=== PATIENT | female | born 1975 | race Caucasian/White ===

== ENCOUNTER 2021-07-25 10:02 | Emergency (ER) | payer BC, SELFPAY ==
--- NOTE | ~2021-07-25 | CT_ITS ---
EXAMINATION: CT ABDOMEN AND PELVIS WITH CONTRAST CLINICAL INFORMATION: Upper abdominal pain radiating to back with vomiting. COMPARISON: June 04, 2017 TECHNIQUE: Multidetector volumetric images were obtained from the superior aspect of the liver through the pubic symphysis following administration 85 mL of Omnipaque 350 intravenous contrast. Sagittal and coronal reformatted images were obtained on the technologist's workstation. Oral contrast: No This CT examination was performed using dose optimization techniques as appropriate, variously including the following: *Automated exposure control *Adjustment of mA and/or kV according to patient size (this includes techniques or standardized protocols for targeted exams where dose is matched to indication/reason for exam; i.e. extremities or head) *Use of iterative reconstruction technique DLP: 854 mGy-cm FINDINGS: LUNG BASES: The visualized lung bases are unremarkable. No pleural or pericardial effusion. LIVER, GALLBLADDER, AND BILIARY TREE: There is fatty infiltration of the liver present with hepatomegaly at approximately 20 cm in vertical span. No new focal hepatic lesion or biliary ductal dilatation is present. There are 2 visualized homogeneously increased density approximately 1 cm lesions present which are stable representing hemangiomas. The gallbladder is unremarkable with no evidence of radiopaque gallstones, gallbladder wall thickening, or obvious pericholecystic inflammatory changes. PANCREAS: No peripancreatic inflammatory changes seen. Within the pancreatic head there are multiple low-density lesions the largest of which measures approximately 2.1 x 1.6 cm in size with Hounsfield unit measurements which may represent soft tissue or complex fluid. No pancreatic ductal dilatation is seen within the body and tail of the pancreas. SPLEEN: Unremarkable. ADRENAL GLANDS: Unremarkable. KIDNEYS AND URETERS: No dilated loops of large or small bowel are evident. BLADDER: Decompressed GASTROINTESTINAL TRACT: No dilated loops of large or small bowel are evident. No free air is evident. No significant amount of free fluid identified. There is a small hiatal hernia. No evidence of acute diverticulitis. No evidence of acute appendicitis. No pericolonic inflammatory fat streaking is seen. ABDOMINAL WALL: No significant hernia is appreciated. LYMPH NODES: No lymphadenopathy appreciated. There are prominent but not pathologically enlarged mesenteric lymph nodes seen. VASCULAR: Unremarkable. PELVIC VISCERA: IUD in place. Bilateral adnexal cysts present. OSSEOUS STRUCTURES: No suspicious destructive bony lesions identified. There is degenerative disc see seen at the L5-S1 level. CT/CT abdomen pelvis w con IMPRESSION: Cystic lesions within the pancreatic head not definitely seen on previous examination of June 04, 2017. These may represent sequela of previous pancreatitis however developing cystic mass cannot be totally excluded. MRCP/MRI would be of help in further evaluation as well as evaluation of the common bile duct through this area. No evidence of acute pancreatitis. Fatty infiltration of the liver with hepatomegaly. Hepatic meningiomas. Bilateral adnexal cysts. No evidence of obstructive uropathy. Fleischner guidelines were followed.
[2021-07-25 10:15] VITALS: BP 130/103; PULSE 115; RESP 18; TEMP 36.7; O2SAT 95; BMI 39.1
--- NOTE | 2021-07-25 10:18 | ED.NAVMDI ---
HPI - Nausea/Vomiting/Diarrhea General Chief complaint: Abdominal Pain Stated complaint: Vomiting Time Seen by Provider: 07/25/21 10:16 Source: patient Mode of arrival: ambulatory Limitations: no limitations History of Present Illness HPI Narrative: 45 y/o female with history of HTN, depression, alcoholic pancreatitis x3 who presents to the ER with diffuse upper abdominal pain that radiates to her back that started 3 days ago. She reports recently relapsing and began drinking heavy amounts of alcohol for the last 2-3 weeks, about 1 bottle of tequila per day. Last drink was about 4 days ago. She has been shaky with nausea and vomiting for the last 2 days. She got into an alcohol detox treatment program in [place] but her father canceled the trip because he thought it was a scam. She states this pain is similar to her previous episodes of pancreatitis. She last had pancreatitis in April and was admitted to [facility] for 8 days and was treated for withdrawal. She denies history of withdrawal seizures. MD elicited complaint: nausea, vomiting and abdominal pain Pertinent past history: alcohol abuse and pacreatitis Onset (ago): day(s) (3) Description of vomiting: food contents and blood-streaked Associated nausea: Yes Associated abdominal pain: Yes Location of pain: epigastric Radiation: other (back) Pain consistency: constant Severity: moderate Pain scale (0-10): 7 Quality: stabbing Exacerbating factors: eating Context: alcohol abuse Associated symptoms: loss of appetite, malaise, nausea/vomiting, weakness and anxiety Related Data Home Medications Medication Instructions Recorded Confirmed alprazolam 0.5 mg tablet 1 tab PO BID PRN 07/25/21 07/25/21 hydroxyzine pamoate 50 mg capsule 1 cap PO BID PRN 07/25/21 07/25/21 lisinopril 20 mg tablet 1 tab PO DAILY 07/25/21 07/25/21 omeprazole 20 mg capsule,delayed 20 mg PO DAILY 07/25/21 07/25/21 release venlafaxine 150 mg 1 cap PO DAILY 07/25/21 07/25/21 capsule,extended release 24 hr Previous Rx's Medication Instructions Recorded ondansetron 4 mg disintegrating 4 mg PO Q8H PRN #10 tab 07/25/21 tablet tramadol 50 mg tablet 50 mg PO Q8H PRN #8 tab 03/31/22 Allergies Allergy/AdvReac Type Severity Reaction Status Date / Time gluten [GLUTEN] Allergy Unknown ABD PAIN, Unverified 01/12/20 19:26 DIARRHEA Gluten Allergy Unknown Uncoded 08/26/17 00:00 pt states no medication Allergy Unknown Uncoded 08/26/17 00:00 allerg Review of Systems Review of Systems: Constitutional: No Fever, No Chills ENT/Mouth: No sore throat, No Rhinorrhea, No Swallowing Difficulty Eyes: No Eye Pain, No Swelling, No Redness Cardiovascular: No Chest Pain, No SOB, No Orthopnea, No Edema Respiratory: No Cough, No Sputum, No Wheezing, No dyspnea Gastrointestinal: + Nausea, + Vomiting, No Diarrhea, + abdominal Pain, No Hematochezia, No Melena Genitourinary: No Dysuria, No Urinary Frequency, No Hematuria Musculoskeletal: No joint pain, No Myalgias Skin: No Skin Lesions, No rash Neuro: + Weakness, No Numbness, No Dizziness, No Headache Psych: + Anxiety/Panic, + Depression Heme/Lymph: No Bruising, No Lymphadenopathy Endocrine: No Polyuria, No Polydipsia Gastrointestinal: Gastrointestinal: Reports nausea PMFSH Past Medical History Medical History (Updated 07/25/21 @ 15:31 by MAINE Moreno) Alcohol abuse Anxiety Depressed GERD (gastroesophageal reflux disease) Gluten intolerance Hypertension Social History Social History Advance Directives: No Physical Exam Vital Signs: Vital Signs: Last Vital Signs Temp 98.0 F 07/25/21 10:15 Pulse 91 07/25/21 15:31 Resp 16 07/25/21 15:31 BP 129/79 07/25/21 15:31 Pulse Ox 99 07/25/21 15:31 BMI result Body Mass Index 39.1 Appearance: Alert. Oriented X3. No acute distress. Eyes: Pupils equal, round and reactive to light. ENT: Pharynx normal. Neck: Normal inspection. Neck supple. CVS: Tachycardic, heart rate 110. Regular rhythm.. Pulses normal. Respiratory: No respiratory distress. Breath sounds normal. Abdomen: Soft. epigastric and right upper quadrant tenderness noted. No rebound or guarding. +BS x4 Skin: Skin warm and dry. Normal skin color. Normal skin turgor. No rashes. Extremities: No lower extremity edema. Very fine bilateral hand tremor noted. Neuro: Oriented X 3. No motor deficit. No sensory deficit. Tearful Course Course Course Narrative: 45-year-old female with history of alcohol abuse and alcoholic pancreatitis presents to the ER with epigastric abdominal pain, nausea, vomiting for the last 3 days. Her last alcoholic drink was about 4 days ago. She states this feels similar to her prior pancreatitis episodes. She is tachycardic on arrival. She has very slight tremor which may be due to alcohol withdrawal. Will treat with IV fluids, 1 mg of Ativan and 4 mg of IV morphine for reports of 8/10 abdominal pain. Lab workup ordered as well as CT scan of the abdomen for further evaluation of her pain. Reevaluation(s) Reevaluation #1: Lipase normal. T bili 1.6 with AST/ALT 63/41 and normal alk phos. Pain, nausea and HR improved. CT scan is pending. Reevaluation #2: CT scan showing no evidence of acute pancreatitis however there are new cystic lesion in the pancreatic head from 2018. Most likely sequela of prior pancreatitis. Spoke with Dr. Mccauley from GI - recommending clear liquids, pain control and outpatient non-emergent MRI/MRCP. Results and plan discussed with patient. Her pain is well controlled here and she is tolerating clear liquids. She would like to be discharged home With plan to go to a alcohol rehab in [place]. assistant boys track coach reached out to the facility in which she would like to go. She has been accepted and has a bed. She is stable for d/c with plan to go to [place] for treatment, short course of pain meds and GI follow up once back home. Consultations Consultation #1: GI - Garrick MDM - Nausea/Vomiting/Diarrhea Lab Data Result diagrams: 07/25/21 10:46 07/25/21 10:46 Labs: Lab Results 07/25/21 07/25/21 07/25/21 Range/Units 10:46 10:46 10:46 WBC 12.2 H (4.8-10.8) X10*3/uL RBC 4.71 (4.20-5.50) X10*6/uL Hgb 15.2 (12.0-16.0) g/dl Hct 43.4 (37.0-47.0) % MCV 92.1 (80.0-98.0) fL MCH 32.3 (27.0-33.0) pg MCHC 35.0 (31.0-35.0) g/dl RDW 13.4 (11.0-16.0) % Plt Count 286 (160-400) X10*3/uL MPV 8.8 L (9.4-12.3) fL Immature Gran % (Auto) 0.3 (0.0-0.4) % Neut % (Auto) 67.2 (45-73) % Lymph % (Auto) 24.1 (20-40) % Ransom % (Auto) 7.8 (2-11) % Eos % (Auto) 0.4 (0-4) % Baso % (Auto) 0.2 (0-2) % Lymph # (Auto) 3.0 (1.2-4.9) X10*3/uL Ransom # (Auto) 1.0 (0.1-1.2) X10*3/uL Eos # (Auto) 0.1 (0.0-0.4) X10*3/uL Baso # (Auto) 0.0 (0.0-0.2) X10*3/uL Abs Immat Gran (auto) 0.04 H (0.00-0.03) X10*3/uL Absolute Neuts (auto) 8.2 (2.0-8.3) x10*3/uL Absolute Nucleated RBC 0.000 (0.0-0.012) X10*3/uL Nucleated RBC % (auto) 0.0 (0.0-0.2) /100WBC Sodium 137 (135-145) mmol/L Potassium 3.8 (3.3-5.1) mmol/L Chloride 92 L (96-108) mmol/L Carbon Dioxide 28 (22-29) mmol/L Anion Gap 21 H (12-20) BUN 13 (9-16) mg/dL Creatinine 1.10 (0.5-1.4) mg/dL Estim Creat Clear Calc 83.0 Estimated GFR 53 Random Glucose 104 (60-115) mg/dL Calcium 10.6 H (8.4-10.2) mg/dL Magnesium 1.8 (1.6-2.6) mg/dL Total Bilirubin 1.6 H (0.0-1.0) mg/dL Direct Bilirubin 0.5 (0.0-0.5) mg/dL AST 63 H (5-31) U/L ALT 41 H (0-31) U/L Alkaline Phosphatase 91 (39-117) U/L Total Protein 8.8 H (6.5-8.0) g/dL Albumin 4.7 (3.5-5.0) g/dL Lipase 68 (8-78) U/L Urine Color Urine Appearance Urine pH (5.0-8.0) Ur Specific [place] (1.005-1.025) Urine Protein (NEG-TRACE) MG/DL Urine Glucose (UA) (NEG) MG/DL Urine Ketones (NEG) MG/DL Urine Blood (NEG) Urine Nitrite (NEG) Ur Leukocyte Esterase (NEG) Urine RBC (0) /HPF Urine WBC (0-4) /HPF Ur Squamous Epith Cells /LPF Amorphous Sediment /LPF Urine Bacteria /LPF Urine Test (NEGATIVE) Urine Opiates Screen (Not Detect) Urine Fentanyl Screen (Not Detect) Ur Barbiturates Screen (Not Detect) Ur Phencyclidine Scrn (Not Detect) Ur Amphetamines Screen (Not Detect) U Benzodiazepines Scrn (Not Detect) Urine Cocaine Screen (Not Detect) U Marijuana (THC) Screen (Not Detect) Ethyl Alcohol mg/dL COVID-19 (JOSE) (Negative) COVID-19 Clin Com Influenza Type A (BOBBY) Negative (Negative) Influenza Type B (BOBBY) Negative (Negative) Influenza A & B Note See Note 07/25/21 07/25/21 07/25/21 Range/Units 10:46 10:46 12:09 WBC (4.8-10.8) X10*3/uL RBC (4.20-5.50) X10*6/uL Hgb (12.0-16.0) g/dl Hct (37.0-47.0) % MCV (80.0-98.0) fL MCH (27.0-33.0) pg MCHC (31.0-35.0) g/dl RDW (11.0-16.0) % Plt Count (160-400) X10*3/uL MPV (9.4-12.3) fL Immature Gran % (Auto) (0.0-0.4) % Neut % (Auto) (45-73) % Lymph % (Auto) (20-40) % Ransom % (Auto) (2-11) % Eos % (Auto) (0-4) % Baso % (Auto) (0-2) % Lymph # (Auto) (1.2-4.9) X10*3/uL Ransom # (Auto) (0.1-1.2) X10*3/uL Eos # (Auto) (0.0-0.4) X10*3/uL Baso # (Auto) (0.0-0.2) X10*3/uL Abs Immat Gran (auto) (0.00-0.03) X10*3/uL Absolute Neuts (auto) (2.0-8.3) x10*3/uL Absolute Nucleated RBC (0.0-0.012) X10*3/uL Nucleated RBC % (auto) (0.0-0.2) /100WBC Sodium (135-145) mmol/L Potassium (3.3-5.1) mmol/L Chloride (96-108) mmol/L Carbon Dioxide (22-29) mmol/L Anion Gap (12-20) BUN (9-16) mg/dL Creatinine (0.5-1.4) mg/dL Estim Creat Clear Calc Estimated GFR Random Glucose (60-115) mg/dL Calcium (8.4-10.2) mg/dL Magnesium (1.6-2.6) mg/dL Total Bilirubin (0.0-1.0) mg/dL Direct Bilirubin (0.0-0.5) mg/dL AST (5-31) U/L ALT (0-31) U/L Alkaline Phosphatase (39-117) U/L Total Protein (6.5-8.0) g/dL Albumin (3.5-5.0) g/dL Lipase (8-78) U/L Urine Color Urine Appearance Urine pH (5.0-8.0) Ur Specific [place] (1.005-1.025) Urine Protein (NEG-TRACE) MG/DL Urine Glucose (UA) (NEG) MG/DL Urine Ketones (NEG) MG/DL Urine Blood (NEG) Urine Nitrite (NEG) Ur Leukocyte Esterase (NEG) Urine RBC (0) /HPF Urine WBC (0-4) /HPF Ur Squamous Epith Cells /LPF Amorphous Sediment /LPF Urine Bacteria /LPF Urine Test (NEGATIVE) Urine Opiates Screen POSITIVE H (Not Detect) Urine Fentanyl Screen Not Detected (Not Detect) Ur Barbiturates Screen Not Detected (Not Detect) Ur Phencyclidine Scrn Not Detected (Not Detect) Ur Amphetamines Screen Not Detected (Not Detect) U Benzodiazepines Scrn POSITIVE H (Not Detect) Urine Cocaine Screen Not Detected (Not Detect) U Marijuana (THC) Screen POSITIVE H (Not Detect) Ethyl Alcohol < 10 mg/dL COVID-19 (JOSE) Negative (Negative) COVID-19 Clin Com See Note Influenza Type A (BOBBY) (Negative) Influenza Type B (BOBBY) (Negative) Influenza A & B Note 07/25/21 07/25/21 Range/Units 12:09 12:09 WBC (4.8-10.8) X10*3/uL RBC (4.20-5.50) X10*6/uL Hgb (12.0-16.0) g/dl Hct (37.0-47.0) % MCV (80.0-98.0) fL MCH (27.0-33.0) pg MCHC (31.0-35.0) g/dl RDW (11.0-16.0) % Plt Count (160-400) X10*3/uL MPV (9.4-12.3) fL Immature Gran % (Auto) (0.0-0.4) % Neut % (Auto) (45-73) % Lymph % (Auto) (20-40) % Ransom % (Auto) (2-11) % Eos % (Auto) (0-4) % Baso % (Auto) (0-2) % Lymph # (Auto) (1.2-4.9) X10*3/uL Ransom # (Auto) (0.1-1.2) X10*3/uL Eos # (Auto) (0.0-0.4) X10*3/uL Baso # (Auto) (0.0-0.2) X10*3/uL Abs Immat Gran (auto) (0.00-0.03) X10*3/uL Absolute Neuts (auto) (2.0-8.3) x10*3/uL Absolute Nucleated RBC (0.0-0.012) X10*3/uL Nucleated RBC % (auto) (0.0-0.2) /100WBC Sodium (135-145) mmol/L Potassium (3.3-5.1) mmol/L Chloride (96-108) mmol/L Carbon Dioxide (22-29) mmol/L Anion Gap (12-20) BUN (9-16) mg/dL Creatinine (0.5-1.4) mg/dL Estim Creat Clear Calc Estimated GFR Random Glucose (60-115) mg/dL Calcium (8.4-10.2) mg/dL Magnesium (1.6-2.6) mg/dL Total Bilirubin (0.0-1.0) mg/dL Direct Bilirubin (0.0-0.5) mg/dL AST (5-31) U/L ALT (0-31) U/L Alkaline Phosphatase (39-117) U/L Total Protein (6.5-8.0) g/dL Albumin (3.5-5.0) g/dL Lipase (8-78) U/L Urine Color ORANGE A Urine Appearance CLOUDY Urine pH 5.5 (5.0-8.0) Ur Specific [place] >= 1.030 H (1.005-1.025) Urine Protein 2+ H (NEG-TRACE) MG/DL Urine Glucose (UA) NEG (NEG) MG/DL Urine Ketones SEE NOTE (NEG) MG/DL Urine Blood NEG (NEG) Urine Nitrite SEE NOTE (NEG) Ur Leukocyte Esterase NEG (NEG) Urine RBC 0 (0) /HPF Urine WBC 1-4 (0-4) /HPF Ur Squamous Epith Cells 2+ /LPF Amorphous Sediment 2+ /LPF Urine Bacteria 3+ /LPF Urine Test NEGATIVE (NEGATIVE) Urine Opiates Screen (Not Detect) Urine Fentanyl Screen (Not Detect) Ur Barbiturates Screen (Not Detect) Ur Phencyclidine Scrn (Not Detect) Ur Amphetamines Screen (Not Detect) U Benzodiazepines Scrn (Not Detect) Urine Cocaine Screen (Not Detect) U Marijuana (THC) Screen (Not Detect) Ethyl Alcohol mg/dL COVID-19 (JOSE) (Negative) COVID-19 Clin Com Influenza Type A (BOBBY) (Negative) Influenza Type B (BOBBY) (Negative) Influenza A & B Note Discharge Plan Discharge Clinical Impression: Pancreatic cyst, Abdominal pain, Nausea & vomiting Patient Disposition: Home, Self-Care Instructions: Acute Abdominal Pain (DC), Alcohol Use Disorder (ED) Additional Instructions: CT scan today showed multiple low-density lesions within the pancreatic head, most likely representing cysts from your previous pancreatitis episodes. There does not appear to be any inflammation of the pancreas at this time. No pancreatitis. Continue to abstain from alcohol. You have a bed at the treatment program in [place]. Recommend getting there as soon as possible. Take the prescribed medications as needed for pain and nausea. Stick to a clear liquid diet for the next 48 hours and slowly advance as tolerated. You will need to follow up with GI specialist for outpatient MRI of your pancreas once you completed your alcohol treatment. If you develop new or worsening symptoms call 911 or come back to the ER for further evaluation. Prescriptions: New ondansetron 4 mg tablet,disintegrating 4 mg PO Q8H PRN (Reason: nausea and vomiting) Qty: 10 0RF tramadol 50 mg tablet 50 mg PO Q8H PRN (Reason: severe pain (scale score 7-10)) Qty: 8 0RF No Action lisinopril 20 mg tablet 1 tab PO DAILY 0RF hydroxyzine pamoate 50 mg capsule 1 cap PO BID PRN (Reason: anxiety) 0RF alprazolam 0.5 mg tablet 1 tab PO BID PRN (Reason: Anxiety) 0RF venlafaxine 150 mg capsule,extended release 24hr 1 cap PO DAILY 0RF omeprazole 20 mg Capsule,Delayed Release(Dr/Ec) 20 mg PO DAILY 0RF Referrals: Jamarcus Mccauley [Physician] - 1 week ( pancreatic cystic lesions, recommending MRCP.) Stand Alone Forms: Work/School Release Interventions: ED Discharge Assessment Last Done: 07/25/21 15:57 Discharge Date/Time: 07/25/21 15:57
[2021-07-25 10:52] LABS: MANUAL DIFF FLAG NO
[2021-07-25 10:55] LABS: Basophils Percent Auto 0.2 % (0-2); Eosinophils Absolute Auto 0.1 X10*3/uL (0.0-0.4); Eosinophils Percent Auto 0.4 % (0-4); Hematocrit 43.4 % (37.0-47.0); Hemoglobin 15.2 g/dl (12.0-16.0); Imm Gran Abs Auto 0.04 X10*3/uL (0.00-0.03); Imm Gran Pct Auto 0.3 % (0.0-0.4); Lymphocytes Percent Auto 24.1 % (20-40); Mean Corpuscular Hemoglobin 32.3 pg (27.0-33.0); Mean Corpuscular Volume 92.1 fL (80.0-98.0); Mean Platelet Volume 8.8 fL (9.4-12.3); Monocytes Percent Auto 7.8 % (2-11); Neutrophils Absolute Auto 8.2 x10*3/uL (2.0-8.3); Neutrophils Percent Auto 67.2 % (45-73); Platelet Count 286 X10*3/uL (160-400); Red Blood Count 4.71 X10*6/uL (4.20-5.50); Red Cell Distribution Width 13.4 % (11.0-16.0); White Blood Count 12.2 X10*3/uL (4.8-10.8)
[2021-07-25 11:08] LABS: Ethanol < 10 mg/dL
[2021-07-25 11:13] LABS: COVID-19 Test Negative (Negative); IDNOW Serial# 16C4AD1C
[2021-07-25 11:16] LABS: Alanine Aminotransferase 41 U/L (0-31); Albumin Level 4.7 g/dL (3.5-5.0); Alkaline Phosphatase 91 U/L (39-117); Anion Gap 21 (12-20); Aspartate Amino Transferase 63 U/L (5-31); Bilirubin Direct 0.5 mg/dL (0.0-0.5); Bilirubin Total 1.6 mg/dL (0.0-1.0); Blood Urea Nitrogen 13 mg/dL (9-16); Calcium 10.6 mg/dL (8.4-10.2); Carbon Dioxide 28 mmol/L (22-29); Chloride 92 mmol/L (96-108); Estimated Glomerular Filt Rate 53; Glucose Random 104 mg/dL (60-115); Lipase 68 U/L (8-78); Magnesium 1.8 mg/dL (1.6-2.6); Potassium 3.8 mmol/L (3.3-5.1); Sodium 137 mmol/L (135-145); Total Protein 8.8 g/dL (6.5-8.0)
[2021-07-25 11:17] LABS: IDNOW Serial# 08D9AD1C; Influenza A Negative (Negative); Influenza B2 Negative (Negative)
[2021-07-25] MEDS: Morphine Sulfate 4 MG/ML CARTRIDGE IVPUSH (11:19)
[2021-07-25] MEDS: LORazepam 2 MG/ML VIAL 1 MG IVPUSH (11:19)
[2021-07-25] MEDS: ondansetron HCL 4 MG/2 ML VIAL IVPUSH (11:20)
[2021-07-25] MEDS: 0.9 % Sodium Chloride 1,000 ML 999 ML IVCONT ×2 (11:21→13:32)
[2021-07-25 11:57] VITALS: BP 120/77; PULSE 98; RESP 18; O2SAT 98
--- NOTE | 2021-07-25 12:12 | MHC.RECOVSUP ---
Addendum entered by Andrés Rodrigez 07/25/21 13:55: Patoent given referral to the [facility] and to [facility]. Original Note: ? Reason for consult:Recovery Support o Current location:ED16 o Identified substance use concern:ETOH - Withdrawal - Seeking ATS (detox) - Support ? Intervention: o ATS bed search started/completed/in process o Community resources provided o Harm reduction discussion ? Plan: o Referral to [facility] o Bed search in progress to o Follow up tomorrow o Patient to follow up with [facility] after discharge ? Additional information:Patient seeking detox. Patient researched detox, and drug and alchohol rehabilitation facilities on her own. Patient last drank 4 days ago and did an intake with [facility] in [place], [place]. They have a bed open for her. Patient given contact information.
[2021-07-25 12:23] LABS: UPreg QC Valid YES; Urine Pregnancy NEGATIVE (NEGATIVE)
[2021-07-25 12:25] LABS: Appearance Urine CLOUDY; Color Urine ORANGE; Glucose Urine UA NEG (NEG); Leukocyte Esterase Urine NEG (NEG); PH 5.5 (5.0-8.0); Specific Gravity - Urine >= 1.030 (1.005-1.025); UACC Culture Trigger NO; Urine Blood NEG (NEG); Urine Protein 2+ MG/DL (NEG-TRACE)
[2021-07-25 12:30] LABS: Amphetamine Screen Urine Not Detected (Not Detect); Barbiturates, Urine Not Detected (Not Detect); Benzodiazepines Screen Urine POSITIVE (Not Detect); Cannabinoid Screen Urine POSITIVE (Not Detect); Cocaine Screen Urine Not Detected (Not Detect); Fentanyl, urine Not Detected (Not Detect); Opiate Screen Urine POSITIVE (Not Detect); Phencyclidine Screen Urine Not Detected (Not Detect)
[2021-07-25 12:31] LABS: RBC Urine 0 /HPF (0); Squamous Epithelial Cell Urine 2+ /LPF
[2021-07-25 12:32] LABS: Amorphous Sediment Urine 2+ /LPF; Bacteria Urine 3+ /LPF
[2021-07-25] MEDS: iohexoL 350 MG/ML 100 ML INFUS..BTL IV (12:46)
--- NOTE | 2021-07-25 14:42 | PHA.MEDREC ---
Pharmacy Consult ? Medication Reconciliation Pharmacy has completed the medication reconciliation. PATIENT IS TAKING EFFEXOR 150, NOT 75
[2021-07-25] MEDS: oxyCODONE HCl Immed Release 5 MG TABLET PO (14:44)
[2021-07-25 15:31] VITALS: BP 129/79; PULSE 91; RESP 16; O2SAT 99
--- NOTE | 2021-07-25 15:46 | PC.NURSE ---
nad, passed po trial, no n/v, pain improvbed
--- NOTE | 2021-07-25 15:55 | PC.NURSE ---
alert, speech clear, steady gait, nad, skin wpd, i told the pt that she should not drive home as she had several meds that could impair her, she called a friend and said a ride was coming
== END 2021-07-25 15:57 | disposition home or self-care (01) ==
PROVIDERS: Physician Assistant; Emergency Provider Emergency Medicine; PCP Pediatrics
DX: K86.2 Cyst of pancreas (principal); R10.10 Upper abdominal pain, unspecified; R11.2 Nausea with vomiting, unspecified; F10.10 Alcohol abuse, uncomplicated; Y90.0 Blood alcohol level of less than 20 mg/100 ml; R53.1 Weakness; F41.9 Anxiety disorder, unspecified; R25.1 Tremor, unspecified; Z20.822 Contact with and (suspected) exposure to COVID-19; I10 Essential (primary) hypertension; Z79.899 Other long term (current) drug therapy
CPT/HCPCS: 36415; 74177; 80048; 80076; 80307; 81001; 81025; 82077; 83690; 83735; 85025; 87502; 87635; 96361; 96374; 96375; 99284; J2060; J2270; J2405; Q9967